=== PATIENT | female | born 1980 | race Caucasian/White ===

== ENCOUNTER 2024-04-09 13:21 | Emergency (ER) | payer SELFPAY ==
[2024-04-09 13:30] VITALS: BP 149/95
--- NOTE | 2024-04-09 14:03 | ED.GENMED ---
History of Present Illness
General
Chief Complaint: Chest Problem
Time Seen by Provider: 04/09/24 13:49
Travel History
Have you had any contact with someone who has COVID-19?: No
Do you have any symptoms of coronavirus? Fever > 100 degrees, chills, cough, shortness of breath, sore throat, loss of taste or smell, muscle aches, or headache?: No
History of Present Illness
History of Present Illness:
HPI: Patient presents with several months of chest pain and shortness of breath. She feels that her symptoms are worsening. She also states that she is concerned for the possible carbon monoxide poisoning as there is some issue with her car as
well as an issue inside of her house and her cat recently also got sick. She has not had GI illness. She has been having headaches in addition to the chest pain and shortness of breath. She feels somewhat confused at times. She also reports some
weight loss. She used to smoke
EXAM:
GENERAL: Well appearing in no distress, the patient is thin
HEENT: Moist oral mucosa
CARDIOVASCULAR: No murmurs, normal heart rate, regular rhythm, No chest wall tenderness
PULMONARY: No respiratory distress, breath sounds are clear and equal
ABDOMEN: Soft with no peritoneal signs, no tenderness
NEUROLOGIC: Excellent strength all extremities, no coordination deficits
PSYCHIATRIC: Appropriate mental status, normal insight and judgement
EXTREMITIES: Nontender, no edema, moves all extremities equally
SKIN: No rash, no lesions
TIME OF INITIAL ENCOUNTER: 2 PM
NUMBER AND COMPLEXITY OF PROBLEMS ADDRESSED AT THE ENCOUNTER
� Chronic conditions affecting care: Denies any significant past medical history
� Acute Exacerbation and/or Progression of Chronic Illness: This is an acute to subacute
� Differential Diagnosis includes: Anxiety, pneumonia unlikely, heart failure unlikely, carbon oxide poisoning unlikely, ACS unlikely, pneumothorax
AMOUNT AND/OR COMPLEXITY OF DATA TO BE REVIEWED AND ANALYZED
� I performed an independent evaluation of and my interpretation is:
EKG: Sinus 117, nonspecific ST abnormality
CT:
X-rays: The chest x-ray shows no acute abnormality
Laboratory Studies: CBC is normal, D-dimer is negative, carboxyhemoglobin level 2%, chemistries unremarkable, opponent negative, BNP less than 20
Other:
� Review of other/old records: I reviewed lab test from 2008 which were unremarkable
� Clinical information was obtained by an independent historian: None needed
� Prescriptions/Medications Considered but not given:
� Further testing considered but not performed:
RISK OF COMPLICATIONS AND/OR MORBIDITY OR MORTALITY OF PATIENT MANAGEMENT
� Social determinants of health affecting care: Lives at home
� Discussion with other providers:
� Escalation of care including admission/observation vs risk of discharge considered: The patient's symptoms have been ongoing for months. She has an unremarkable ED workup. There is no evidence for ACS, PE, pneumonia,
pneumothorax, or other emergency diagnosis. Carbon monoxide level is also unremarkable. On reassessment at 3:30 PM, her clinical condition is unchanged but heart heart rate has decreased to about 96. We talked about the possibly of an anxiety
component.
Phy Exam
Physical Exam
Physical Exam:
See HPI
Course
Orders/Labs/Results
Orders:
Orders
04/09/24 13:35
ECG [Electrocardiogram (*1)] Urgent
Reason for Study: Palpitations
Other Reason for Exam: chest pain
EKG- Treatment ONCE
04/09/24 14:02
CR Chest - 2 Views Urgent
Comment:
Reason For Exam: sob cp
04/09/24 14:31
Carboxyhemoglobin Urgent
Complete Blood Count/With Diff Urgent
Comprehensive Metabolic Panel Urgent
D-Dimer Urgent
NT-proBNP Urgent
Troponin I Urgent
04/09/24 14:31
04/09/24 14:31
Vital Signs
Initial and Last Documented VS:
Initial Vital Signs
Temp Pulse Resp BP Pulse Ox
98.1 F 133 16 149/95 97
04/09/24 13:30 04/09/24 13:30 04/09/24 13:30 04/09/24 13:30 04/09/24 13:30
Last Documented Vital Signs
Temp Pulse Resp BP Pulse Ox
98.1 F 94 22 132/94 97
04/09/24 13:30 04/09/24 15:00 04/09/24 15:00 04/09/24 15:00 04/09/24 13:30
*Critical Care Note
Total Time (30-74mins, 75-104mins- exclusive of procedures): Not Applicable
ED Attending Note
-
Portions of this chart may have been created with voice recognition software.� Occasional wrong word or��sound alike� substitutions may have occurred due to the inherent limitations of voice recognition software.
Discharge Plan
Departure
Patient Disposition: Home (Routine Discharge)
Date of Disposition: 04/09/24
Time of Disposition: 15:28
Patient with high blood pressure during this ER visit?: Yes
Discharge Problem:
Chest pain
Instructions: Chest Pain PCP Follow Up, BLOOD PRESSURE
Prescriptions:
No Action
dextroamphetamine-amphetamine [Adderall] 20 mg Tablet
20 mg PO DAILY
lorazepam 1 mg Tablet
1 mg PO DAILY
Effexor
10 mg PO DAILY
Referrals:
Nancy Loyola MD [Family Provider] -
Activity Restrictions/Additional Instructions:
The cause of your symptoms is unclear. Your complete blood cell count, complete metabolic profile, carbon oxide level, test for heart attack called troponin, test for heart failure called BNP level, were all normal; chest x-ray was normal.
Follow-up with your primary care doctor.
Interventions
Interventions:
*Risk Screen - Suicide Last Done: 04/09/24 15:00
*General Assessment Last Done: 04/09/24 15:00
*Neglect/Abuse Screening Last Done: 04/09/24 15:00
ED- Fall Risk Assessment Last Done: 04/09/24 15:00
*ED COVID-19 Vaccine History Last Done: 04/09/24 15:00
*Nursing Disposition Last Done: 04/09/24 15:48
ED- Cardiac Assessment Last Done: 04/09/24 15:00
ED- Neurological Assessment Last Done: 04/09/24 15:00
ED- Pulmonary Assessment Last Done: 04/09/24 15:00
Discharge Date and Time
Discharge Date/Time: 04/09/24 15:49
Print Language: BARBADIAN
[2024-04-09 14:36] VITALS: BP 116/90
[2024-04-09 14:50] LABS: % Basophils 0.9 % (0-2); % Eosinophils 4.3 % (0-6); % Immature Granulocytes 0.1 % (0-0.5); % Lymphocytes 31.7 % (20.5-51.1); % Monocytes 6.6 % (1.7-9.3); % Neutrophils 56.4 % (42.2-75.2); Absolute Basophils 0.1 10^3/uL (0-0.2); Absolute Eosinophils 0.3 10^3/uL (0-0.7); Absolute Lymphocytes 2.4 10^3/uL (1.2-3.4); Absolute Monocytes 0.5 10^3/uL (0.1-0.6); Absolute Neutrophils 4.2 10^3/uL (1.4-6.5); Hematocrit 37.6 % (37.0-47.0); Hemoglobin 12.9 g/dL (12.0-16.0); Mean Corp Hgb Conc. 34.3 g/dL (33.0-37.0); Mean Corpuscular Volume 87.4 fL (81.0-99.0); Mean Platelet Volume 9.6 fL (7.4-10.4); Nucleated Red Blood Cells % 0 %; Platelet Count 276 10^3/uL (130-400); Red Cell Dist. Width 11.9 % (11.5-14.5); White Blood Cell Count 7.4 10^3/uL (4.8-10.8)
[2024-04-09 14:59] VITALS: BP 131/98
[2024-04-09 15:00] VITALS: BP 132/94; BMI 21.8
[2024-04-09 15:02] LABS: ALT (SGPT) 18 U/L (0-35); AST (SGOT) 22 U/L (14-36); Albumin 4.4 g/dl (3.5-5.0); Alkaline Phosphatase 49 U/L (38-126); Blood Urea Nitrogen 7 mg/dl (7-17); Calcium 9.5 mg/dl (8.4-10.2); Carbon Dioxide 29 mmol/L (22-30); Chloride 102 mmol/L (98-107); Glucose 80 mg/dl (70-99); Potassium 3.8 mmol/L (3.5-5.1); Sodium 139 mmol/L (135-145); Total Bilirubin 0.3 mg/dl (0.2-1.3); Total Protein 7.1 g/dl (6.3-8.2); eGFR > 60.00
[2024-04-09 15:11] LABS: D-Dimer < 0.27 ug/mlFEU (0.00-0.50)
[2024-04-09 15:12] LABS: NT-proBNP < 20.0 pg/ml; Troponin I < 0.012 ng/ml
== END 2024-04-09 15:49 | disposition home or self-care (01) ==
LOC: EMR 13:21
PROVIDERS: EMERGENCY PHYSICIAN Emergency Medicine; FAMILY PHYSICIAN Internal Medicine
DX: R07.89 Other chest pain (principal)
CPT/HCPCS: 99283; 71046; 80053; 82375; 83880; 84484; 85025; 85379; 93005